=== PATIENT | female | born 1955 | race Caucasian/White ===

== ENCOUNTER 2022-05-09 13:44 | Outpatient (CLI) | payer MEDICARE, BC, SELFPAY ==
--- NOTE | 2022-05-09 14:00 | CRLHL7_ITS ---
For Patients: As a result of the Century Cures Act, medical imaging exams and procedure reports are released immediately into your electronic medical record. You may view this report before your referring provider. If you have questions, please contact your health care provider. BILATERAL SCREENING MAMMOGRAM WITH COMPUTER-AIDED DETECTION AND TOMOSYNTHESIS TECHNIQUE: CC and MLO views were obtained. These mammographic images have been obtained using full-field digital technique. These mammographic images were interpreted with the benefit of computer-aided detection. Breast tomosynthesis was used in this interpretation. COMPARISON FILM: 10/10/20, 04/26/19, 01/06/18. FINDINGS: There are scattered areas of fibroglandular density. IMPRESSION: There is no radiographic evidence for malignancy. ASSESSMENT: BI-RADS Category 2: Benign RECOMMENDATION: Routine screening mammogram in 1 year. A lay language report of this examination will be provided to the patient. KAYODE CASTILLO M.D. Diagnostic Radiologist [email or web address] Transcribed: 1:[address]/Dictated by: Kayode Castillo MD @ 05/10/2022 11:22:00 AM (Electronically Signed)
== END 2022-05-09 13:45 | disposition home or self-care (01) ==
LOC: MAMMO 13:47
PROVIDERS: PCP Internal Medicine
DX: Z12.31 Encounter for screening mammogram for malignant neoplasm of breast (principal)
CPT/HCPCS: 77063; 77067

== ENCOUNTER 2023-07-08 13:00 | Outpatient (CLI) | payer MEDICARE, BC, SELFPAY ==
--- NOTE | 2023-07-08 13:20 | MM_ITS ---
Patient: OLU CLEARY Facility:?[facility] RIS Patient ID:?[id number] Site Patient ID:?[id number] Site :?[id number] Study:?XRay-Breast Bilateral 3D screening mammogram w/cad-07/08/2023 1:48:04 PM Ordering Physician:DARIN Final Report: BILATERAL SCREENING MAMMOGRAM WITH COMPUTER-AIDED DETECTION AND TOMOSYNTHESIS TECHNIQUE: CC and MLO views were obtained. These mammographic images have been obtained using full-field digital technique. These mammographic images were interpreted with the benefit of computer-aided detection. Breast Tomosynthesis was used in this interpretation. COMPARISON FILM: 05/09/22, 10/10/20, 04/26/19. FINDINGS: There are scattered areas of fibroglandular density. IMPRESSION: There is no radiographic evidence for malignancy. ASSESSMENT: BI-RADS Category 2: Benign RECOMMENDATION: Routine screening mammogram in 1 year. A lay language report of this examination will be provided to the patient. Kayode Rodrigez M.D. Diagnostic Radiologist [email or web address] DSM/sp R& Transcribed: 3:43 p.m. SP/Dictated by: Kayode Rodrigez MD @ 07/09/2023 10:29:00 AM Signed by:?Kayode Rodrigez MD @07/09/2023 3:49:49 PM (Electronic Signature)
== END 2023-07-08 13:01 | disposition home or self-care (01) ==
LOC: MAMMO 13:01
PROVIDERS: PCP Internal Medicine; Visit Provider Internal Medicine
DX: Z12.31 Encounter for screening mammogram for malignant neoplasm of breast (principal)
CPT/HCPCS: 77063; 77067

== ENCOUNTER 2024-10-19 13:04 | Outpatient (CLI) | payer MEDICARE, BC, SELFPAY ==
--- NOTE | 2024-10-19 13:20 | MM_ITS ---
Patient: OLU CLEARY Facility:?[facility] Patient ID:?[id number] Site Patient ID:?[id number]. Site :?1955 Study:?XRay-Breast 3D Fernie SCREENING-10/19/2024 2:12:52 PM Ordering Physician:?Stuart Cedeño Final Report: INDICATION: BILATERAL SCREENING MAMMOGRAM, ASYMPTOMATIC 69 Y/O FEMALE COMPARISON: 07/08/2023, 05/09/2022, 10/10/2020 TECHNIQUE: Digital mammogram in CC and MLO projections including computer-aided detection (CAD) and tomosynthesis. BREAST COMPOSITION: There are scattered areas of fibroglandular density. FINDINGS: No suspicious findings. ASSESSMENT: BI-RADS 2 Benign RECOMMENDATION: Annual screening mammogram. A lay language report of this examination will be provided to the patient. Dictated by: Kayode Rodrigez MD @ 10/21/2024 09:09:01 Signed by:?Kayode Rodrigez MD @10/21/2024 9:09:01 AM (Electronic Signature)
--- OUTSIDE RECORDS SUMMARY | 2024-10-20 00:50 | XMS_ITS | Clinical Summary ---
Author Organization [facility] Address [address] [place] [id number] Care Team Providers Care Senior Revenue Accountant Name Role Phone Gala Davidson DO Primary Care Provider Janice Luther MD Unavailable [phone] Christina Rowe NP Unavailable Allergies Active Allergy Reactions Criticality Noted Date Comments Soy Protein Other - Describe In Comment Field 04/04/2015 Stomach pain Medications blood sugar diagnostic (Blood Glucose Test) stripIndication s:Type 2 diabetes mellitus without complication, without long-term current use of insulin (HC) Test 1 times per day. 100 Each 02/07/2022 Active lancetsIndicati ons:Type 2 diabetes mellitus without complication, without long-term current use of insulin (HC) Test 1 times per day. 100 Each 02/07/2022 Active blood-glucose meterIndication s:Type 2 diabetes mellitus without complication, without long-term current use of insulin (HC) Dispense meter, test strips, lancets covered by pt ins. E11.9 NIDDM type II - Test 1 time/day 1 Each 02/11/2022 Active triamcinolone, 55 mcg each actuation, nasal (Nasacort) 55 mcg nasal spray Inhale 2 Sprays to both nostrils once daily. Active multivitamin (MVI) tablet Take by mouth. 06/17/2023 Active cyanocobalamin (VITAMIN B12) 1,000 mcg/mL injection Inject 0.1 mL intramuscular . 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 Peripheral sensory neuropathy 02/07/2022 Small intestinal bacterial overgrowth (SIBO) Type 2 diabetes mellitus wit hout complication, without long-term current use of insulin 02/07/2022 Irritable bowel 04/12/2015 History of breast cancer 04/12/2015 Encounters Date Type Department Care Team Description 10/11/2024 1:30 PM CDT Nurse/Clinic Staff Only [facility] [address] [place] [address] Immunization/Injec tion (B12) 10/11/2024 Travel 10/06/2024 Travel 09/16/2024 1:45 PM CDT Nurse/Clinic Staff Only [facility] [address] [place] [address] Immunization/Injec tion (VITAMIN B-12 INJECTION) 09/15/2024 Travel 09/13/2024 2:40 PM CDT Office Visit [facility] [address] [place] [address] Benita Schwartz MD Eye Injury (bug in her eye - wiped eye and now redness and swelling ) 09/13/2024 Travel 09/03/2024 1:00 PM CDT Telemedicine [facility] [address] [place] [address] Gala Davidson DO Diabetes (In [place]) 08/29/2024 Travel 08/27/2024 1:15 PM CDT Orders Only [facility] [address] [place] [address] [facility], [facility] 08/26/2024 Travel 08/19/2024 2:00 PM CDT Nurse/Clinic Staff Only [facility] [address] [place] [address] [address] Immunization/Injec tion (VITAMIN B-12 INJECTION ) 08/18/2024 Travel 07/22/2024 3:15 PM CDT Nurse/Clinic Staff Only [facility] [address] [place] [address] [address] Immunization/Injec tion (VITAMIN B-12 INJECTION ) 07/22/2024 Travel from Last 3 Months Immunizations Immunization Administration Dates Next Due COVID-19 vaccine (Wasatch VaporStix 30mcg/0.3mL) P F, MDV 03/01/2021 Influenza Virus, Unspecified 03/18/2016 Influenza, Inactivated AIIV4 (Age 65+ Years) Preserv Free 03/06/2022 Pneumococcal Conj 20-valent (Prevnar 20) 023 RSV, Recombinant ADJ Reconst ituted (Arexvy 120MCG/0.5mL) 05/28/2024 Tdap 10/08/2018,02/25/2008 Zoster (Shingrix-RZV, recombinant) 11/21/2020, Zoster (Zostavax-ZVL, live) 04/12/2015 Family History Medical History Relation Name Comments Anesthesia Problem No Family History Blood Disease No Family History Cancer-breast No Family History Cancer-colon No Family History Social History Tobacco Use Types Packs/Day Years Used Date Smoking Tobacco: Former Cigarettes Q uit: 1977 Smokeless Tobacco: Never Tobacco Cessation:Counseling Given: Not Answered Comments:Smoked lightly in college Alcohol Use Standard Drinks/Week Comments Yes 0 (1 standard drink = 0.6 oz pure alcohol) couple glasses of wine per month PHQ-2 Answer Date Recorded PHQ-2 TOTAL SCORE 0 11/03/2023 Social Connections Answer Date Recorded Do you often feel lonely or isolated from those around you? 0 09/13/2024 Financial Resource Strain Answer Date R ecorded Difficulty of Paying Living Expenses 3 09/13/2024 Difficulty of Paying Living Expenses Not on file 09/13/2024 Food Insecurity Answer Date Recorded Do you worry your food will run out before you are able to buy more? 1 09/13/2024 Transportation Needs Answer Date Record ed Does lack of transportation keep you from medica l appointments? 1 09/13/2024 Does lack of transportation keep you from work, meetings or getting things that you need? 1 09/13/2024 Housing Stability Answer Date Recorded What is your housing situation today? 1 09/13/2024 Utilities Answer Date Recorded Do you have trouble paying f or utilities (for example, heat, electricity, water, phone)? 1 09/13/2024 Comments No Sex and Gender Information Value Date Recorded Sex Assigned at Not on file Legal Sex Female 5:25 AM ASSISTANT WOMEN'S [employer]ENNIS COACH Gender Identity Not on file Sexual Orientation Not on file Obstetrics History Para Term AB IAB SAB Ectopic Multiple Livin g Live Births 4 4 4 0 0 4 Date Outcome GA Total Labor Labor/2nd/3rd Weight Sex Type Anes PTL Chitra A1 A5 Name Clin Term first child adopted out as a teenager Term Term Term Last Filed Vital Signs Vital Sign Reading Time Taken Comments Blood Pressure 150/84 09/13/2024 2:41 PM CDT Pulse 117 09/13/2024 2:41 PM CDT Temperature 36.7 C (98.1 F) 06/22/2024 2:03 PM ASSIST[employer] WOMEN'S TENNIS [employer]ACH Respiratory Rate 18 06/22/2024 2:03 PM ASSISTANT WOMEN'S TENNIS COACH Oxygen Saturation 99% 09/13/2024 2:41 PM CDT Inhaled Oxygen Concentration - - Weight 77.3 kg (170 lb 6.4 oz) 04/26/2024 1:38 P M ASSISTANT WOMEN'S TENNIS COACH Height 176 cm (5' 9.29) 11/03/2023 1:29 PM CDT Body Mass Index 24.95 11/03/2023 1:29 PM CDT Plan of Treatment Upcoming Encounters Date Type Department Care Team (Late st Contact Info) Description 11/08/2024 1:30 PM CDT Nurse/Clinic Staff Only [facility] [address] [place] [address] 04/14/2025 2:00 PM ASSISTANT WOMEN'S TENNIS COACH Appointment [facility] [address] [place] [address] 04/18/2025 2:45 PM ASSISTANT WOMEN'S [employer]ENNIS COACH Office [facility] [address] [facility] [place] [address] Christina Rowe, CYBER INSTRUCTOR [address] [place] [address] Health Maintenance Due Date Last Done Comments COVID-19 vaccine series ( season) 2023 02/08/2022, 03/01/2021, 07/07/2020 Mammogram for age 45-75 07/07/2024 07/08/19 24, 05/09/2022, 11/13/2015, Additional history exists BMI (ht and wt on same day) for age 18+ 11/02/2024 11/03/2023, 05/13/2022, 02/07/2022, Additional history exists Depression screening for age 12+ 11/02/2024 11/03/2023, 02/07/2022, 04/03/2016, Additional history exists Medicare Wellness for age 65+ 11/03/2024 11/03/2023 Influenza Vaccine (Season Ended) 2024 03/06/2022, 03/18/2016 Colonoscopy through age 75 01/23/202701/23 (Verified in Care Everywhere or Patient Record), 12/27/2013 (Completed outside of [employer]) Tetanus booster 10/08/2028 10/08/2018, 01/28, 02/25/2008 (Completed outside of [facility]) Lipids for age 45-75 11/02/2028 11/03/2023, 11/13/2022, 05/13/2022, Additional history exists Tdap Completed 10/08/2018, 01/28, 02/25/2008 (Completed outside of [facility]) Zoster (shingles) series for age 50+ Completed 11/21/2020, 09/01/2020, 04/12/2015 Hepatitis C screening for age 18-79 Completed 01/07/2022 (Completed outside of [facility]) Pneumococcal series for age 50+ Completed 05/13/2022 DEXA/DXA scan for age 65+ Completed 2022, 05/27/2013, 05/27/2013 RSV vaccine for adults or Completed 05/28/2024 Hepatitis B series for 19+ Aged Out N o longer eligible based on patient's age to complete this topic Procedures Procedure Name Priority Date/Time Associated Diagnosis Comments SCAN-OPERATIVE/PROC EDURE REPORT 10/15/2024 1:00 PM CDT HEMOGLOBIN A1C Routine 08/27/2024 1:06 PM CDT Type 2 diabetes mellitus without complication, without long-term current use of insulin (HC) LIPID PANEL W REFLEX MEASURED LDL Routine 11/03/2023 1:49 PM CDT Type 2 diabetes mellitus without complication, without long-term current use of insulin (HC) SCAN-MAMMOGRAPHY REPORT 07/08/2023 12:00 AM CDT XR DXA BONE DENSITY 2 SITES AXIAL Routine 05/15/2022 1:13 PM ASSISTANT WOMEN'S TENNIS COACH Asymptomatic postmenopausal state from Last 3 Months or Most Recently Relevant to Health Maintenance Results * SCAN-OPERATIVE/PROCEDURE REPORT (10/15/2024 1:00 PM CDT) Narrative Procedure Note Benedict Carey MD - 10/15/2024 12:13 PM CDT [facility] [address], [address], [place] [address] Patient Name: Kalani Carolina Gender: Female Exam Date: 10/15/2024 Visit Number: [id number] Age: 69 Years Date of : 1955 Attending MD: Benedict Carey MD Medical Record#: [id number] ----- Procedure: Upper GI Endoscopy Indications: Heartburn Dysphagia Atrophic gastritis Provider: Benedict Carey MD Referring MD: Referral Self Primary MD: Gala Davidson DO Medications: Admitting Medication: 0.9% Normal Saline at TKO Intra Procedure Medications: Patient received monitored anesthesia care. Complications: No immediate complications Procedure: An examination of the heart and lungs was performed within acceptablelimits. . The patient was therefore deemed a reasonable candidate forsedation. The risks and benefits were explained to the patient, who appeared tounderstand. After obtaining informed consent, the scope was passed underdirect vision. Throughout the procedure the patient's blood pressure,pulse and oxygen saturations were monitored. The scope was introducedthrough the mouth and advanced to the second portion of duodenum. Findings: Esophagus: The z-line is 39 centimeters from the incisors. Top of the gastric foldsis 39 centimeters from the incisors. *Esophagus Comments: A single adherent white plaque in the distalesophagus, which may be consistent with candidiasis. Biopsies wereobtained. The remainder of the esophagus appeared normal. Biopsies obtained in themidesophagus to evaluate for eosinophilic esophagitis. Stomach: Erythematous Location: antrum; description: diffuse erythema Maneuver: biopsies were obtained Atrophic Location: body; description: atrophic Maneuver: biopsies were obtained The diaphragm hiatus is at 39 centimeters from the incisors. *Stomach Comments: Multiple 3 to 6 mm polyps noted, previously biopsiedand found to be hyperplastic polyps. Duodenum: Normal duodenum. Impression: Chronic atrophic gastritis without bleeding Preliminary Plan: Recommendation Comments: My office will contact you when I have thebiopsy results to review next steps. Pathology Results: A: STOMACH, ANTRUM, BIOPSY: 1. Non-erosive reactive gastropathy (see comment) a. Sampling: Antral mucosa b. Distribution: Antral mucosa 2. Negative for inflammation, atrophy and Helicobacter B: STOMACH, BODY, BIOPSY: 1. Continued involvement by autoimmune gastritis (see comment) 2. Negative for Helicobacter (H&E stain reviewed) 3. Negative for dysplasia C: ESOPHAGUS, DISTAL, BIOPSY: 1. Normal esophageal squamous mucosa 2. Gastric cardia type mucosa with nonspecific chronicinflammation (negative for Helicobacter) 3. Negative for reflux changes and eosinophilic esophagitis 4. Negative for intestinal metaplasia and dysplasia D: ESOPHAGUS, MID, BIOPSY: 1. Normal squamous mucosa 2. Negative for reflux changes and eosinophilic esophagitis 3. Negative for columnar mucosa COMMENTS A. The likely etiology is an ongoing non-inflammatory type mucosal injurydue to a chemical type of injury; this may be due to ingestion ofnon-steroidal anti-inflammatory drugs, aspirin (via prostaglandin-mediatedinjury), excess alcohol, corticosteroids, or bile/alkaline reflux, thelatter usually in the setting of a gastroenteric anastomosis. B. The history of autoimmune gastritis is noted and the current histologicfindings are consistent continued involvement by autoimmune gastritis. The autoimmune mechanisms in this type of atrophic gastritis are directedagainst gastric body (corpus) glands, resulting in progressivehypochlorhydria and hypergastrinemia and decreased secretion of intrinsicfactor. This form of gastritis is associated with an increased risk ofgastric adenocarcinoma and gastric carcinoid tumors; however, managementof these risks remains uncertain and needs to be individualized.Dysplasia, when present, further increases the risk of gastricadenocarcinoma. These patients are also at increased risk for perniciousanemia and iron deficiency anemia. MICROSCOPIC A: Performed B: The histologic findings include: Sampling: Antral and body mucosae Distribution: Body mucosa Intestinal metaplasia: Mild Atrophy: Marked Pyloric metaplasia: Marked Helicobacter: Absent Gastrin and chromogranin IHC were performed on prior material and will notbe repeated here. C: Performed D: Performed Electronically signed by: Richard Gagnon MD Interpreted at [facility], [address] [place] [id number] Final Plan: Comments: I recommend we start famotidine 20 mg twice a day. Pleasecontact my office if you have not received this prescription. _Electronically signed by: Benedict Carey MD 10/15/2024 cc: Gala Davidson DO us Benedict Carey MD OTHER Final Resul t * (ABNORMAL) HEMOGLOBIN A1C (08/27/2024 1:06 PM CDT) HEMOGLOBIN A1C 6.5(H) <5.7 % [facility] Comment: For someone without known diabetes, a hemoglobin A1c value of 6.5% or greater indicates that they may have diabetes and this should be confirmed with a follow-up test. For someone with known diabetes, a value <7% indicates that their diabetes is well controlled and a value greater than or equal to 7% indicates suboptimal control. A1c targets should be individualized based on duration of diabetes, age, comorbid conditions, and other considerations. Currently, no consensus exists regarding use of hemoglobin A1c for diagnosis of diabetes for children. Blood BLOOD SPECIMEN / Unknown 08/27/2024 1:06 PM CDT 08/27/2024 1:08 PM CDT Gala Davidson DO CHEMISTRY Final Result [facility] [address] [place] [address], [address] [address] * (ABNORMAL) LIPID PANEL W REFLEX MEASURED LDL (11/03/2023 1:49 PM CDT) CHOLESTEROL,TOTAL 312(H) 100 - 199 mg/dL 11/03/2023 2:29 PM [facility] Comment: Cholesterol, Total Reference Ranges Desirable <200 mg/dL Borderline 200-239 mg/dL High >=240 mg/dL TRIGLYCERIDES 183(H) <150 mg/dL 11/03/2023 2:29 PM [facility] HDL CHOLESTEROL 45 >40 mg/dL 2:29 PM [facility] NON-HDL CHOLESTEROL 267(H) <145 mg/dl 11/03/2023 2:29 PM [facility] CHOL/HDL RATIO 6.93(H) <4.50 11/03/2023 2:29 PM [facility] LDL CHOLESTEROL 230(H) <=130 mg/dL 11/03/2023 2:29 PM CDT [facility] VLDL CHOLESTEROL 37(H) <=30 mg/dL 11/03/2023 2:29 PM CDT [facility] PROVIDER ORDERED STATUS RANDOM 11/03/2023 2:29 PM CDT [facility] Blood BLOOD SPECIMEN / Unknown Venipuncture / Unknown 11/03/2023 1:49 PM CDT 11/03/2023 1:52 PM CDT us Gala Davidson DO CHEMISTRY Final Result [facility] [address] [place] [address] * SCAN-MAMMOGRAPHY REPORT (07/08/2023 12:00 AM CDT) Anatomical Region Laterality Modality Other us Scanner OTHER Final Result * (ABNORMAL) XR DXA BONE DENSITY 2 SITES AXIAL (05/15/2022 1:13 PM ASSISTANT WOMEN'S TENNIS COACH) Anatomical Region Laterality Modality Spine, HIPS, HIPL, HIPR Computed Radiography Impressions 05/16/2022 4:10 PM ASSISTANT WOMEN'S TENNIS COACH Osteopenia. Lowest T-score -2.3. Risk of fracture is not elevated. RECOMMENDATIONS: The National Osteoporosis Foundation recommends pharmacologic treatment for patients with T-scores of -2.5 or less, patients with prior history of fragility fractures, or patients with 10-year probability of greater than 3% at hips or greater than 20% of suffering major osteoporotic fractures. Recommend continued optimization of calcium and vitamin D intake through dietary means and/or supplementation and regular exercise. Repeat scan recommended in 5-7 years. Narrative 05/16/2022 4:10 PM ASSISTANT WOMEN'S TENNIS COACH For Patients: Results are automatically released to your [employer]) account once available, in compliance with federal regulations. This means that you may see your results before your provider has had a chance to review them. Please allow 2-3 business days for your provider to comment on the results. XR DXA Bone Mineral Density (BMD) EXAM LOCATION: [address] [address] PATIENT NAME: Kalani Carolina DATE OF : 1955 EXAM DATE: 05/15/2022 REQUESTING PROVIDER: Gala Davidson DO GENDER AT : female HEIGHT: 5' 9.5 (05/13/2022) WEIGHT: 171 lb 3 oz (05/13/2022) MENOPAUSAL STATUS: Postmenopausal RACE/ETHNICITY: White RISK FACTORS: Celiac Disease CURRENT MEDICATION FOR BONE LOSS: NONE INDICATION: Postmenopausal COMPARISON DATE(S): None DXA scans are compared to prior studies for a patient only when the two (or more) studies were performed on the same scanner. It is not possible to compare data generated on one scanner to data from another because there are not standards in DXA equipment. This applies even if the two scanners are made by the same clinical informatics manager. PROCEDURE: Dual-energy x-ray absorptiometry performed with routine technique. Reporting is completed in the form of a T-score. The T-score represents the standard deviation from peak bone mass based on young healthy adult. A Z-score is used for diagnosis in premenopausal women, and for men under the age of 50. FINDINGS: RESULT LUMBAR SPINE L2 - L4 BMD: 0.919 g/cm2 T-Score: - 2.3 RESULTS FEMUR Left femoral neck BMD: 0.858 g/cm2 T-Score: - 1.3 Right femoral neck BMD: 0.859 g/cm2 T-Score: - 1.3 Left hip BMD: 0.854 g/cm2 T-Score: - 1.2 Right hip BMD: 0.834 g/cm2 T-Score: - 1.4 WHO criteria: Normal: T-score at or above -1 SD Osteopenia: T-score between -1.1 and -2.4 SD Osteoporosis: T-score at or below -2.5 SD FRAX RISK CALCULATION (USED FOR OSTEOPENIA ONLY): 10-year probability of major osteoporotic fracture: 9.0%. 10-year probability of hip fracture: 0.9%. Gala Davidson DO DEXA Final Result from Last 3 Months or Most Recently Relevant to Health Maintenance Insurance [employer] [place] [employer] MR PB ONLY MEDICARE PART B HB ONLY [employer] [place] BLUE HB ONLY MEDICARE PART A HB ONLY Care Teams Senior Revenue Accountant Relationship Specialty Start Date End Date StuartGala DO [address] [place] [address] PCP - General Internal Medicine 02/07/22 Janice Luther MD [address] [place] [address] Medical Oncologist Hematology and Oncology 04/23/22 Christina Rowe NP [address] [place], [place] [id number] Nurse Practitioner Hematology and Oncology 04/23/22
== END 2024-10-19 13:05 | disposition home or self-care (01) ==
LOC: MAMMO 13:08
PROVIDERS: PCP Internal Medicine; Visit Provider Internal Medicine
DX: Z12.31 Encounter for screening mammogram for malignant neoplasm of breast (principal)
CPT/HCPCS: 77063; 77067